=== PATIENT | female | born 1975 | race Caucasian/White ===

== ENCOUNTER 2020-12-15 22:07 | Emergency (ER) | payer MEDICAID ==
[~2020-12-15] VITALS: Ht 172.7 cm; Wt 71.2 kg
--- NOTE | 2020-12-15 23:22 | NUR ---
RAD AT BEDSIDE
[2020-12-15] MEDS ORDERED: KETOROLAC TROMETHAMINE INJ 60 MG/2 ML VIAL IM ONE ×2 (23:30)
--- NOTE | 2020-12-15 23:30 | NUR ---
A&0X4 F BIB SELF FOR BACK PAIN SECONDARY TO COUGHING. COVID POSITIVE X 8 DAYS. STATES SHE HAS HAD INTERMITTENT FEVERS SHE HAS BEEN TAKING TYLENOL FOR,BUT NOTHING FOR COUGH. BACK PAIN IS CURRENTLY 2/10. DENIES SOB 98% ON RA RESPIRATION RATE 18 EVEN AND UNLABORED. NO ASSOSCIATED ABD PAIN, NASUEA, VOMITTING OR DIARRHEA. WAS AT BEDSIDE FOR EVAL. ORDERS RECIEVED AND CARRIED OUT. URINE SAMPLE SENT TO LAB.
[2020-12-15 23:49] LABS: BILIRUBIN,URINE Negative (NEGATIVE); COLOR,URINE LIGHT YELLOW (YELLOW); LEUKOCYTE ESTERASE ,URINE Negative (NEGATIVE); NITRITE, URINE Negative (NEGATIVE); PROTEIN,URINE Negative (NEGATIVE); UGLUCOSE Negative (NEGATIVE); UROBILINOGEN,URINE 0.2 EU/dL (0.2)
[2020-12-15] MEDS ORDERED: AZIT250T13 PO (23:58)
[2020-12-15] MEDS ORDERED: PRED50TA PO (23:58)
--- NOTE | 2020-12-16 00:05 | NUR ---
PATIENT DISCHARGED HOME INSTABLE CONDITION.WRITTEN AND VERBAL DISCHARGE INSTRUCTIONS PROVIDED AND VERBALIZED UNDERSTANDING. WAS PICKED UP BY FAMILY AND AMBULATED WITHOUT DIFFICULTY.
[2020-12-16 00:11] VITALS: BP 140/75
[2020-12-16 00:13] LABS: BACTERIA,URINE None seen /HPF (None Seen); SQUAMOUS EPITHELIAL CELL,UR Rare /HPF (None Seen); WBC,URINE 0-2 /HPF (0-3)
== END 2020-12-16 00:08 | disposition home or self-care (01) ==
LOC: ER 22:28
DX: U07.1 COVID-19 (principal); J18.9 Pneumonia, unspecified organism; Z79.899 Other long term (current) drug therapy
CPT/HCPCS: 71045; 81001; 96372; 99284; J1885